=== PATIENT | female | born 1985 | race Caucasian/White ===

== ENCOUNTER 2017-02-25 14:08 | Emergency (ER) | payer OTHER ==
[2017-02-25] MEDS ORDERED: Ibuprofen TAB* 600 MG PO ONE (17:00)
--- NOTE | 2017-02-25 17:29 | RAD ---
Indication: Lateral malleolus and anterior tibial pain following rolling injury today. Comparison: LEFT lower leg of the same date. Technique: AP, mortise, and lateral views LEFT ankle. Report: Soft tissue swelling over the lateral malleolus and suggestion of small talocrural joint effusion. Negative for fracture, osteochondral lesion, or malalignment. IMPRESSION: Lateral soft tissue swelling and small talocrural joint effusion without additional finding.
--- NOTE | 2017-02-25 17:30 | RAD ---
Indication: LEFT ankle, anterior tibial, and posterior calf pain following rolling injury today. Comparison: Ankle of the same date. Technique: AP and lateral views LEFT lower leg. REPORT AND IMPRESSION: Mild soft tissue swelling over the lateral malleolus. No additional soft tissue contour abnormality. Negative for fracture or malalignment.
[2017-02-25 17:31] VITALS: BP 114/87
--- NOTE | 2017-03-22 11:25 | UC ---
Martina Bhandari Rebecca, scribed for Bri Mead MD on 02/25/17 at 1642 . Lower Extremity/Ankle HPI - HPI Summary HPI Summary: Pt is a 32 y/o F who presents to [facility] c/o L ankle pain and swelling s/p injury. At 1230 today she was walking down stairs, going to the next step and rolled her ankle. Pain began immediately after injury and is currently moderate , ranked 7/10, characterized as sharp and burning. Pain is in the L ankle with radiation from the foot up the posterior surface of the LLE and into the L buttock. Additionally notes L alexandre pain and lumbar back pain. Sx aggravated by palpation and ambulation, alleviated by nothing. Denies knee pain. Reports her back pain is very mild and is not concerned about the it at this time.Current sx are similar to when she tore the ligaments in the R ankle after a similar incident which was treated with a cast for 6 weeks. [facility] February 05, 2017. - History of Current Complaint Chief Complaint: UCLowerExtremity Stated Complaint: ANKLE INJURY Time Seen by Provider: 02/25/17 16:40 Hx Obtained From: Patient Hx Last Menstrual Period: 02/01/17 Onset/Duration: Lasting Hours, Still Present Severity Currently: Moderate Pain Intensity: 7 Pain Scale Used: 0-10 Numeric Aggravating Factor(s): Ambulation, Other - Palpation Alleviating Factor(s): Nothing - Allergies/Home Medications Allergies/Adverse Reactions: Allergies Allergy/AdvReac Type Severity Reaction Status Date / Time No Known Allergies Allergy Verified 02/25/17 14:15 PMH/Surg Hx/FS Hx/Imm Hx Previously Healthy: Yes - Surgical History Surgical History: Yes Surgery Procedure, Year, and Place: tonsil - Family History Known Family History: Positive: Diabetes - Grandmother - Social History Alcohol Use: None Substance Use Type: None Smoking Status (MU): Never Smoked Tobacco Review of Systems Constitutional: Negative Skin: Negative Eyes: Negative ENT: Negative Respiratory: Negative Cardiovascular: Negative Gastrointestinal: Negative Genitourinary: Negative Motor: Negative Neurovascular: Negative Musculoskeletal: Arthralgia - L ankle pain and swelling s/p injury with radiation up the posterior surface of the LLE and into the L buttock; L alexandre pain; Lumbar back pain Neurological: Negative Psychological: Negative All Other Systems Reviewed And Are Negative: Yes - Comments Additional Review of Systems Comments: POSITIVE: L ankle pain and swelling s/p injury with radiation up the psoterior surface of the LLE and into the L buttock; L alexandre pain; Lumbar back pain NEGATIVE: Knee pain Physical Exam Triage Information Reviewed: Yes Appearance: Well-Nourished, Pain Distress - uncomfortable with examination Vital Signs: Initial Vital Signs Temp 98 F 02/25/17 14:16 Pulse 76 02/25/17 14:16 Resp 18 02/25/17 14:16 BP 141/79 02/25/17 14:16 Pulse Ox 100 02/25/17 14:16 Vital Signs Reviewed: Yes Eye Exam: Normal ENT Exam: Normal Neck exam: Normal Respiratory Exam: Normal - no tachypnea no dyspnea Cardiovascular Exam: Normal - good color, normal heart rate Abdominal Exam: Normal - no c/o Musculoskeletal Exam: Other - Tender and swelling carlos L lat mall region. No crepitus. + distal numb feeling. Also c/o pain rad post L thigh. Hip nontender. Distal DP / PT 2+, good cap refill x 5 toes. + sens LT present, but subj numb in toes Neurological Exam: Normal - see above o/w grossly nonfocal Psychological Exam: Normal Skin Exam: Normal - normal except injury as above - Additional Comments Appearance: Well-Nourished Eye Exam: Normal ENT Exam: Normal Respiratory Exam: Normal, no dyspnea, no tachypnea, normal respiratory rate Cardiovascular Exam: Normal Cardiovascular: Heart rate regular, good general skin color, good capillary refill Abdominal Exam: Normal Abdomen Description: Nontender, No Organomegaly, Soft Bowel Sounds: Present Musculoskeletal: Strength Intact, Lateral malleolus and talofibular joint regions hurt, No proximal tenderness Neurological Exam: Normal: nonfocal, grossly intact Psychological Exam: Normal: conversing easily and appropriately Skin Exam: Normal: no visible or reported rash Diagnostics - Radiology LLE XR Radiology Interpretation Completed By: Radiologist - Mild soft tissue swelling over the lateral malleolus. No additional soft tissue contour abnormality. Negative for fracture or malalignment. L Ankle XR Radiology Interpretation Completed By: Radiologist - Lateral soft tissue swelling and small talocrural joint effusion without additional finding. Re-Evaluation - Re-Evaluation First Eval Re-Evaluation Time: 17:37 Comment: Discussed XR results with the patient. Lower Extremity Course/Dx - Course Course Of Treatment: Reviewed xrays and xray reports. D/w pt. Reviewed tx plan and need for f/u. Questions answered to the best of my ability. - Differential Dx/Diagnosis Provider Diagnoses: Acute left ankle sprain with neuropathy. Sciatic-like pain Discharge - Discharge Plan Condition: Stable Disposition: HOME Prescriptions: Ibuprofen TAB* [Motrin TAB* 600 MG] 600 mg PO Q8H PRN #30 tab PRN Reason: Pain Patient Education Materials: Ankle Sprain (ED), Crutch Instructions (ED), Sciatica (ED) Forms: *Work Release Referrals: [facility] [Outside] [facility] [Outside] No Primary Care Phys,NOPCP [Primary Care Provider] - Additional Instructions: Follow up Orthopedics (Dr. Crews on referral call today). Please follow up with orthopedic / sports medicine physician in the next week. Seek medical attention for worse or new problems in the meantime. The documentation as recorded by the Martina cardoza Rebecca accurately reflects the service I personally performed and the decisions made by me, Bri Mead MD.
== END 2017-02-25 18:28 | disposition home or self-care (01) ==
LOC: UCEAST 14:08
DX: S93.402A Sprain of unspecified ligament of left ankle, initial encounter (principal); X50.1XXA Overexertion from prolonged static or awkward postures, initial encounter; Y93.89 Activity, other specified; Y92.9 Unspecified place or not applicable; M54.42 Lumbago with sciatica, left side
CPT/HCPCS: 99203; A9270-GY; G0463